=== PATIENT | female | born 1965 | race Caucasian/White ===

== ENCOUNTER 2021-06-08 22:56 | Inpatient (IN) ==
[2021-06-09] MEDS ORDERED: *HR* OxyCODONE Immed Rel 5 MG TABLET PO PRN (00:51)
[2021-06-09 07:13] LABS: Basophils % 0.7 %; Eosinophils # 0.3 K/mcL (0.0-0.6); Eosinophils % 4.6 %; Hematocrit 26.5 % (35.3-44.9); Immature Granulocytes % 0.5 % (0-4); Lymphocytes # 1.6 K/mcL (0.6-4.6); Lymphocytes % 25.5 %; Mean Corpuscular Hemoglobin 34.7 pg (28.0-33.3); Mean Corpuscular Volume 102.3 fL (83.0-100.0); Mean Platelet Volume 9.8 fL (9.4-12.4); Monocytes # 0.8 K/mcL (0.0-1.3); Monocytes % 12.3 %; Neutrophils # 3.4 K/mcL (1.6-8.9); Platelet Count 330 K/mcL (140-400); Red Blood Count 2.59 M/mcL (3.82-4.97); Red Cell Distribution Width 11.9 % (11.5-14.5); Segmented Neutrophils % 56.4 %; White Blood Count 6.1 K/mcL (4.3-11.1)
[2021-06-09 07:38] LABS: BUN/Creatinine Ratio 19 (6-26); Blood Urea Nitrogen 8 mg/dL (6-20); Calcium 8.7 mg/dL (8.6-10.3); Carbon Dioxide 26 mEq/L (23-29); Chloride 104 mEq/L (98-107); Glucose 113 mg/dL (70-105); Osmolality,Calculated 287 (280-300); Potassium 4.1 mEq/L (3.5-5.1); Sodium 139 mEq/L (136-145); eGFR For African Americans > 60 (> 60); eGFR For Non-African Americans > 60 (> 60)
[2021-06-09] MEDS: Gabapentin 300 MG CAPSULE PO SCH ×3 (09:50→20:39)
[2021-06-09] MEDS: Metoprolol XL (24 HR) Succ 50 MG TAB.ER.24H PO SCH (09:50)
[2021-06-09] MEDS: tiZANidine 4 MG TABLET PO SCH ×3 (09:50→20:39)
[2021-06-09] MEDS: Apixaban 5 MG TABLET PO SCH ×2 (09:50→20:38)
[2021-06-09] MEDS ORDERED: Ondansetron ODT 4 MG TAB.RAPDIS SL PRN (17:31)
[2021-06-10] MEDS: *HR* OxyCODONE Immed Rel 5 MG TABLET PO PRN (02:09)
[2021-06-10] MEDS: Metoprolol XL (24 HR) Succ 50 MG TAB.ER.24H PO SCH (09:23)
[2021-06-10] MEDS: Apixaban 5 MG TABLET PO SCH ×2 (09:23→20:02)
[2021-06-10] MEDS: Gabapentin 300 MG CAPSULE PO SCH ×3 (09:23→20:02)
[2021-06-10] MEDS: tiZANidine 4 MG TABLET PO SCH ×3 (09:23→20:02)
[2021-06-10] MEDS: hydrOXYzine pamoate 25 MG CAPSULE PO PRN (18:29)
[2021-06-10] MEDS: Nicotine 21 MG PATCH.TD24 TD SCH (20:02)
[2021-06-11] MEDS: hydrOXYzine pamoate 25 MG CAPSULE PO PRN (01:26)
[2021-06-11] MEDS: *HR* OxyCODONE Immed Rel 5 MG TABLET PO PRN (01:26)
[2021-06-11 07:28] VITALS: RESP 16
[2021-06-11] MEDS: Gabapentin 300 MG CAPSULE PO SCH ×2 (10:08→15:17)
[2021-06-11] MEDS: Apixaban 5 MG TABLET PO SCH (10:08)
[2021-06-11] MEDS: tiZANidine 4 MG TABLET PO SCH ×2 (10:08→15:17)
[2021-06-11] MEDS: Nicotine 21 MG PATCH.TD24 TD SCH (10:08)
[2021-06-11] MEDS: Metoprolol XL (24 HR) Succ 50 MG TAB.ER.24H PO SCH (10:09)
[2021-06-11 11:07] VITALS: BP 94/61; PULSE 79; TEMP 97.6; O2SAT 98
== END 2021-06-11 17:53 | disposition home health service (06) | DRG 560 ==
LOC: INPPIK 06-09 00:30
PROVIDERS: ADMIT Internal Medicine; ATTEND Internal Medicine